=== PATIENT | female | born 1960 | race Native Hawaiian/Other Pacific Islander ===

== ENCOUNTER 2016-06-09 16:43 | Outpatient (CLI) | payer OTHER | END 2016-06-09 19:26 | disposition home or self-care (01) | LOC: RAD 16:43 | DX: Z12.31 Encounter for screening mammogram for malignant neoplasm of breast (principal); M81.0 Age-related osteoporosis without current pathological fracture ==

== ENCOUNTER 2017-03-31 14:09 | Emergency (ER) | payer OTHER ==
[~2017-03-31] VITALS: Ht 157.5 cm; Wt 56.2 kg
[2017-03-31 15:54] LABS: PLATELET COUNT 262 K/uL (152-353)
[2017-03-31 16:02] LABS: POTASSIUM 3.7 mmol/L (3.6-5.2); SODIUM 139 mmol/L (136-145)
== END 2017-03-31 17:10 | disposition home or self-care (01) ==
LOC: ED 14:09
DX: S61.451A Open bite of right hand, initial encounter (principal); D72.1 Eosinophilia; L08.9 Local infection of the skin and subcutaneous tissue, unspecified; Y92.69 Other specified industrial and construction area as the place of occurrence of the external cause
CPT/HCPCS: 36415; 80053; 85027; 99283

== ENCOUNTER 2018-03-31 09:44 | Outpatient (CLI) | payer OTHER | END 2018-03-31 19:49 | disposition home or self-care (01) | LOC: MRI 09:44 | DX: M51.16 Intervertebral disc disorders with radiculopathy, lumbar region (principal) | CPT/HCPCS: 36415; 82565; 84520; A9576 ==